=== PATIENT | male | born 1985 | race Caucasian/White ===

== ENCOUNTER 2016-10-16 15:33 | Outpatient (CLI) | payer OTHER | END 2016-10-16 15:34 | disposition home or self-care (01) | DX: M94.262 Chondromalacia, left knee (principal); S83.232A Complex tear of medial meniscus, current injury, left knee, initial encounter ==

== ENCOUNTER 2017-02-07 09:19 | Day surgery (SDC) | payer OTHER ==
[~2017-02-07 09:19] MED LIST: ACETAMINOPHEN 1,000 MG/100 ML 100 ML IV ONE; CELECOXIB 100 MG CAPSULE PO ONE; VANCOMYCIN INJ 1 GM in SODIUM CHLORIDE 0.9% 250 ML IV ONE
[2017-02-07] MEDS ORDERED: LIDOCAINE-MPF 2% 5 ML VIAL IM ONE (09:30)
[2017-02-07] MEDS ORDERED: ONDANSETRON 4 MG/2 ML VIAL IVP ONE (09:30)
[2017-02-07] MEDS ORDERED: PROPOFOL 200 MG/20 ML VIAL IVP ONE (09:30)
[2017-02-07] MEDS ORDERED: MIDAZOLAM 2 MG/2 ML VIAL IVP ONE (09:30)
[2017-02-07] MEDS ORDERED: DEXAMETHASONE 4 MG/ML VIAL IVP ONE (09:30)
[2017-02-07] MEDS ORDERED: fentaNYL 100 MCG/2 ML VIAL IVP ONE (09:30)
[2017-02-07] MEDS ORDERED: LACTATED RINGERS 1,000 ML IV ONE ×2 (09:39→11:25)
[2017-02-07] MEDS ORDERED: MORPHINE PF 5 MG/10 ML AMP EPI ONE ×2 (10:43→11:25)
[2017-02-07] MEDS ORDERED: ROPIVACAINE 0.2% PF 20 ML AMPULE SUBQ ONE ×2 (10:44→11:26)
[2017-02-07] MEDS ORDERED: BUPIVACAINE 0.5% PF 10 ML VIAL IM ONE ×2 (10:44→11:25)
[2017-02-07] MEDS ORDERED: oxyCOD/ACETAMIN 5 MG/325 MG TABLET PO ONE (12:47)
[2017-02-07 13:46] VITALS: BP 127/74
--- NOTE | 2017-02-11 07:59 | OPERATIVE REPORT ---
DATE OF SURGERY: 02/07/2017 00:00:00 ID#: [id number] PREOPERATIVE DIAGNOSIS: Left knee medial meniscus tear, left knee medial femoral condyle chondromalacia. OPERATIVE DIAGNOSIS: Left knee bucket-handle medial meniscus tear and grade 1 medial femoral condyle chondromalacia. OPERATION PERFORMED: Left knee arthroscopy with near-total medial meniscectomy. OPERATIVE SURGEON: Commander Klaus Wang, [facility] USN MANAGER PRINT SURGEON: Lieutenant Commander Tg Gray MD, [facility], [facility] ANESTHESIA PROVIDER: Mragarito Simons CRNA ANESTHESIA TECHNIQUE: General anesthesia via LMA with local at the incision site. CIRCULATING RN: Mr. Zach Richard RN SCRUB TECHS: Terri Elizalde RN, BSN; and Yessy Aguirre, RAFAEL START TIME: 1042 hours. END TIME: 1115 hours. INJECTED SUBSTANCES INCLUDE: Duramorph morphine 10 mg and ropivacaine 0.2% 5 mL injected intraarticularly after closure of portal sites for postoperative pain control. Marcaine plain 0.25% 9 mL at the portal sites prior to incision; INTRAVENOUS FLUIDS: Lactated Ringer 900 mL. PREOPERATIVE ANTIBIOTICS: Vancomycin 1 gram due to a prior MRSA infection with negative nasal swabs x2. ESTIMATED BLOOD LOSS: 5 mL. PREOPERATIVE PREP: Hibiclens followed by ChloraPrep applied to the exposed operative skin after draping. Patient had FREEMAN hose and SCDs on the right lower extremity and functioning prior to induction of anesthesia. TOURNIQUET TIME: None. COMPLICATIONS: None. 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 Patient was counseled as far as the findings and options for operative versus nonoperative management , including the risks, benefits, alternatives, and expectations to both operative and nonoperative management. He preferred to have surgery, received command authorization for surgery, had negative nasal MRSA swabs x2. On the day of surgery, he identified the operative site to be his left knee; it was initialed by the operative surgeon. He had removal of hair with clippers. He was then taken back to the operating room, placed in the supine position, and underwent general anesthesia via LMA. After adequate anesthetic control, and initiation of antibiotics, the patient's bony prominences were well padded. He had a tourniquet applied to the left upper thigh. The knee underwent examination under anesthesia, which revealed full passive range of motion, stable anterior and posterior drawer, stable Jack's, negative pivot shift or glide, stable varus and valgus stress at 0 and 30 degrees. The patient's left lower extremity then underwent Hibiclens prep and standard sterile draping, followed by a surgical pause to confirm the proper patient, procedure, operative site, position, prophylactic antibiotics, surgical initials, and surgical instrumentation in accordance with the [place] Protocol Procedure Verification. Following this, additional ChloraPrep was applied to the exposed operative skin and allowed to dry for 3 minutes. His bony landmarks were then outlined with a skin marker, and surgery began with a stab incision to the anterolateral knee, insertion of the arthroscope into the suprapatellar pouch, where diagnostic arthroscopy began, revealing a normal-appearing medial, central, and lateral patellar chondral facets, normal- appearing chondral surface of the trochlea and patellofemoral tracking. The medial gutter was entered. There were no signs of synovitis or loose bodies. The medial compartment was entered under a valgus stress, revealing a bucket- handle medial meniscus tear with the majority of the tissue in the notch, and only a thin remnant of rim of meniscal tissue at the capsule. The knee was taken through a full range of motion; there were no other signs of chondromalacia. The meniscus tear was then reduced. The femoral notch required some removal of ligamentum in order to better evaluate the ACL, which appeared normal. The lateral compartment was then entered under figure-4 position, probing the lateral meniscus showed no sign of tear or instability. There was a small fissure to the lateral femoral condyle. Otherwise normal findings in the lateral compartment. The knee was taken through a full range of motion; there were no other signs of chondromalacia. Attention was then focused back to the medial compartment, where a near total medial meniscectomy was performed due to the complex nature and pattern of the tear and inability to completely reduce the tear, along with multiple tear planes that prohibited what I felt would be a unstable repair with chance of healing. The meniscectomy was performed using the sucker shaver and Max set meniscus biters back to a stable rim. The instruments were then removed from the patient's knee, and the fluid was allowed to extravasate out. The wounds were then closed with 3-0 Monocryl, followed by Mastisol, Steri-Strips, Xeroform, sterile plain gauze, sterile Webril, and MESERET bandage to mid thigh. The patient was then extubated in the operating room and taken to the recovery room in stable condition and tolerated the procedure well. The patient's was notified by telephone of the intraoperative findings, procedure performed, and postoperative instructions. Due to the near-total medial meniscectomy, and the fact that the patient has good cartilage along with good alignment on his mechanical axis x-ray performed preoperatively, and stable ligamentous exam, this patient may be a future candidate for meniscus transplantation, which I will discuss with him postoperatively. Edited and electronically signed: CDR Klaus Wang MC, USN [id number] JOB #: [id number] EXT JOB #:[id number] CARLINE
== END 2017-02-07 09:20 | disposition home or self-care (01) ==
LOC: SDS 09:19
PROVIDERS: ATTEND Orthopaedic Surgery
PROC: 0SBD4ZZ Excision of Left Knee Joint, Percutaneous Endoscopic Approach (ICD-10-PCS; principal; 2017-02-07 11:00)
DX: S83.212A Bucket-handle tear of medial meniscus, current injury, left knee, initial encounter (principal); M94.262 Chondromalacia, left knee; Z87.891 Personal history of nicotine dependence
CPT/HCPCS: 29881; A9270; J0131; J3370; J7120

== ENCOUNTER 2017-04-14 06:37 | Emergency (ER) | payer OTHER ==
[2017-04-14] MEDS ORDERED: ONDANSETRON ODT 4 MG TABLET TL STA (06:50)
[2017-04-14 06:52] VITALS: BP 125/84
[2017-04-14] MEDS ORDERED: ONDANSETRON ODT 4 MG TABLET ONE (06:55)
--- NOTE | 2017-04-14 06:59 | ED Physician Documentation ---
PD HPI NVD - Stated complaint Stated Complaint: VOMITING - Chief complaint Chief Complaint: Abd Pain - History obtained from History obtained from: Patient - History of Present Illness Timing - onset: How many hours ago (5) Timing - duration: Hours (5) Timing - details: Abrupt onset Pain level max: 3 Pain level now: 3 Associated symptoms: Abdominal pain (cramping). No: Hematemesis, Melena, Hematochezia Contributing factors: Sick contact (children at home with same) Improved by: Vomiting, BM (diarrhea) Worsened by: Eating Similar symptoms before: Has not had sx before Recently seen: Not recently seen Review of Systems Ten Systems: 10 systems reviewed and negative Constitutional: denies: Fever, Chills Ears: denies: Ear pain Nose: denies: Rhinorrhea / runny nose, Congestion Throat: denies: Sore throat Cardiac: denies: Chest pain / pressure Respiratory: denies: Cough GI: reports: Nausea, Vomiting (several times last night), Diarrhea (once) Skin: denies: Rash Musculoskeletal: denies: Neck pain, Back pain Neurologic: denies: Headache PD PAST MEDICAL HISTORY - Past Medical History Cardiovascular: None Respiratory: None Endocrine/Autoimmune: None GI: None : None HEENT: None Psych: None Musculoskeletal: Other Derm: None - Past Surgical History Past Surgical History: No - Present Medications Home Medications: Ambulatory Orders Medication Instructions Recorded Confirmed Ibuprofen [Motrin] 800 mg PO Q8H PRN #30 tablet 07/21/16 02/07/17 Multivitamin [Multiple Vitamins] 1 each PO 02/04/17 Ondansetron Odt [Zofran] 4 mg TL Q6H PRN #10 tablet 04/14/17 - Allergies Allergies/Adverse Reactions: Allergies Allergy/AdvReac Type Severity Reaction Status Date / Time antihistamines eye drops Allergy Unknown Uncoded 02/04/17 10:46 - Social History Does the pt smoke?: No Smoking Status: Never smoker Does the pt drink ETOH?: Yes Does the pt have substance abuse?: No - Immunizations Immunizations are current?: Yes - POLST Patient has POLST: No PD ED PE NORMAL - Vitals Vital signs reviewed: Yes - General General: Alert and oriented X 3, No acute distress - HEENT HEENT: PERRL, Moist mucous membranes - Neck Neck: Supple, no meningeal sign - Cardiac Cardiac: RRR, Strong equal pulses - Respiratory Respiratory: No respiratory distress - Abdomen Abdomen: Soft, Non tender, Non distended - Derm Derm: Warm and dry - Neuro Neuro: Alert and oriented X 3 - Psych Psych: Normal mood, Normal affect Results - Vitals Vitals: Vital Signs - 24 hr 04/14/17 06:44 Temperature 37.1 C Heart Rate 102 H Respiratory 20 Rate Blood Pressure 125/84 H O2 Saturation 96 Oxygen O2 Source Room air PD MEDICAL DECISION MAKING - ED course Complexity details: re-evaluated patient, considered differential, d/w patient ED course: Patient is a 32-year-old male who presents to the emergency department with vomiting last night and diarrhea 1 today. Was supposed to go to work at the [employer] this morning, but was sent here for a work note. He is well- appearing, nontoxic. Afebrile. Given Zofran and is tolerating p.o. well. Will continue supportive care and follow-up with his doctor. Family is all sick with the same symptoms. Likely viral gastroenteritis. Patient counseled regarding signs and symptoms for which I believe and urgent re-evaluation would be necessary. Patient with good understanding of and agreement to plan and is comfortable going home at this time This document was made in part using voice recognition software. While efforts are made to proofread this document, sound alike and grammatical errors may occur. Departure - Departure Disposition: 01 Home, Self Care Clinical Impression: Gastroenteritis Condition: Good Instructions: ED Gastroenteritis Viral Follow-Up: Jasper Seals MD [Primary Care Provider] - Within 3 Days Prescriptions: Ondansetron Odt [Zofran] 4 mg TL Q6H PRN #10 tablet PRN Reason: Nausea / Vomiting Comments: Drink plenty of fluids and rest. Return if you worsen. Forms: Activity restrictions
== END 2017-04-14 07:48 | disposition home or self-care (01) ==
LOC: ED 06:37
DX: K52.9 Noninfective gastroenteritis and colitis, unspecified (principal)
CPT/HCPCS: 99283; Q0162

== ENCOUNTER 2018-02-28 05:25 | Emergency (ER) | payer OTHER ==
[2018-02-28] MEDS ORDERED: KETOROLAC 60 MG/2 ML VIAL IVP STA (05:51)
--- NOTE | 2018-02-28 06:08 | ED Physician Documentation ---
History of Present Illness - Stated complaint Stated Complaint: MALE - Chief complaint Chief Complaint: General - History obtained from History obtained from: Patient - Additonal information Additional information: 33-year-old male presents the emergency department with 2 complaints. The patient reports having diarrhea for the past several weeks which he attributes to a poor diet and stress. The patient denies blood in the stools, focal abdominal pain, vomiting, recent antibiotic usage Or continuous pain. The patient has had no change in his appetite and has been able to eat and drink. The patient reports 2 days of the left testicle pain which is worse with movement. The patient denies any hematuria, dysuria or penile discharge. The patient denies testicle swelling. The patient denies new sexual partners. The patient reports pain with movement. Symptoms are described as moderate. No other associated symptoms. No specific triggering factors. Review of Systems Constitutional: denies: Fever, Chills Eyes: denies: Loss of vision Ears: denies: Ear pain Nose: denies: Congestion Throat: denies: Dental pain / toothache Cardiac: denies: Chest pain / pressure Respiratory: denies: Dyspnea GI: reports: Diarrhea : reports: Testicular pain. denies: Dysuria, Unable to Void, Hematuria, Discharge Skin: denies: Rash Musculoskeletal: denies: Neck pain Neurologic: denies: Generalized weakness Immunocompromised: denies: Chemotherapy PD PAST MEDICAL HISTORY - Past Medical History Past Medical History: No Cardiovascular: None Respiratory: None Endocrine/Autoimmune: None GI: None : None HEENT: None Psych: None Musculoskeletal: Other Derm: None - Past Surgical History Past Surgical History: No - Present Medications Home Medications: Ambulatory Orders Medication Instructions Recorded Confirmed Loperamide HCl [Imodium A-D] 2 mg PO BID PRN #10 capsule 02/28/18 - Allergies Allergies/Adverse Reactions: Allergies Allergy/AdvReac Type Severity Reaction Status Date / Time antihistamines eye drops Allergy Unknown Uncoded 02/28/18 05:40 - Social History Does the pt smoke?: No Smoking Status: Never smoker Does the pt drink ETOH?: Yes Does the pt have substance abuse?: No - Immunizations Immunizations are current?: Yes - POLST Patient has POLST: No PD ED PE NORMAL - General General: Alert and oriented X 3, No acute distress - HEENT HEENT: Atraumatic, PERRL, EOMI, Ears normal, Moist mucous membranes - Cardiac Cardiac: RRR, Strong equal pulses - Respiratory Respiratory: No respiratory distress, Clear bilaterally - Abdomen Abdomen: Normal bowel sounds, Non tender, Non distended - Derm Derm: Normal color - Extremities Extremities: No deformity, Normal ROM s pain - Neuro Neuro: Alert and oriented X 3, Normal speech - Psych Psych: Normal mood PD ED PE EXPANDED - Male Male : Circumcised, Testes descended carey, Normal lie/cremastaric, Tenderness, Radiation Physicist present. No: Skin lesions, Discharge Results - Vitals Vitals: Vital Signs - 24 hr 02/28/18 02/28/18 05:37 07:36 Temperature 36.0 C L 36.1 C L Heart Rate 74 72 Respiratory 16 18 Rate Blood Pressure 142/84 H 138/80 H O2 Saturation 97 98 Oxygen O2 Source Room air - Labs Labs: Microbiology 02/28/18 06:04 Clostridium difficile (PCR) - Final Stool 02/28/18 06:04 Campylobacter Antigen Assay - Final Stool Laboratory Tests 02/28/18 02/28/18 02/28/18 06:00 06:18 06:18 WBC 6.2 RBC 4.78 Hgb 15.0 Hct 42.9 MCV 89.7 MCH 31.3 H MCHC 34.9 RDW 13.2 Plt Count 292 MPV 6.7 L Neut # (Auto) 3.1 Lymph # (Auto) 2.2 [place] # (Auto) 0.6 Eos # (Auto) 0.3 Baso # (Auto) 0.1 Absolute Nucleated RBC 0.01 Nucleated RBC % 0.1 Sodium 136 Potassium 4.1 Chloride 107 Carbon Dioxide 25 Anion Gap 4.0 L BUN 17 Creatinine 0.9 Estimated GFR (MDRD) 98 Glucose 110 H Calcium 8.8 Total Bilirubin 1.0 AST 30 ALT 38 Alkaline Phosphatase 51 Total Protein 7.4 Albumin 4.6 Globulin 2.8 Albumin/Globulin Ratio 1.6 Lipase 38 Urine Color YELLOW Urine Clarity CLEAR Urine pH 6.0 Ur Specific [place] 1.020 Urine Protein NEGATIVE Urine Glucose (UA) NEGATIVE Urine Ketones NEGATIVE Urine Occult Blood NEGATIVE Urine Nitrite NEGATIVE Urine Bilirubin NEGATIVE Urine Urobilinogen 0.2 (NORMAL) Ur Leukocyte Esterase NEGATIVE Ur Microscopic Review NOT INDICATED Urine Culture Comments NOT INDICATED PD MEDICAL DECISION MAKING - ED course ED course: 07:00 AM The patient's care was turned over to Dr. Pickard to follow up on the lab results, US, Reevaluation and final disposition - Sepsis Event Vital Signs: Vital Signs - 24 hr 02/28/18 02/28/18 05:37 07:36 Temperature 36.0 C L 36.1 C L Heart Rate 74 72 Respiratory 16 18 Rate Blood Pressure 142/84 H 138/80 H O2 Saturation 97 98 Oxygen O2 Source Room air Departure - Departure Disposition: 01 Home, Self Care Clinical Impression: Testicle pain Diarrhea Qualifiers: Diarrhea type: unspecified type Qualified Code(s): R19.7 - Diarrhea, unspecified Condition: Stable Instructions: ED Diarrhea Viral, ED Testicular Pain [facility] Prescriptions: Loperamide HCl [Imodium A-D] 2 mg PO BID PRN #10 capsule PRN Reason: Diarrhea Comments: Drink plenty of fluids. You can use Tylenol or ibuprofen if needed for discomfort. Take Imodium as prescribed if needed for diarrhea. Follow up with your primary physician. Call to schedule appointment. Return to the emergency department if you develop increasing abdominal pain, increasing testicular pain, dehydration, or otherwise worsening symptoms. Forms: Activity restrictions Discharge Date/Time: 02/28/18 07:36
[2018-02-28 06:24] LABS: BASOPHILS # (AUTO) 0.1 10^3/uL (0.0-0.1); EOSINOPHILS # (AUTO) 0.3 10^3/uL (0.0-0.7); EOSINOPHILS % (AUTO) 4.2 %; LYMPHOCYTES # (AUTO) 2.2 10^3/uL (1.5-3.5); LYMPHOCYTES % (AUTO) 35.6 %; MEAN CORPUSCULAR HEMOGLOBIN 31.3 pg (27.0-31.0); MEAN CORPUSCULAR HGB CONC 34.9 g/dL (32.0-36.0); MEAN CORPUSCULAR VOLUME 89.7 fL (80.0-94.0); MEAN PLATELET VOLUME 6.7 fL (7.4-11.4); MONOCYTES # (AUTO) 0.6 10^3/uL (0.0-1.0); MONOCYTES % (AUTO) 8.9 %; NEUTROPHILS # (AUTO) 3.1 10^3/uL (1.5-6.6); NEUTROPHILS % (AUTO) 50.3 %; PLT - PLATELET COUNT 292 10^3/uL (130-450); RED BLOOD COUNT 4.78 10^6/uL (4.70-6.10); RED CELL DISTRIBUTION WIDTH 13.2 % (12.0-15.0); WHITE BLOOD COUNT 6.2 x10^3/uL (4.8-10.8)
[2018-02-28 06:35] LABS: ALBUMIN 4.6 g/dL (3.2-5.5); ALBUMIN/GLOBULIN RATIO 1.6 (1.0-2.2); CALCIUM 8.8 mg/dL (8.5-10.3); CREATININE 0.9 mg/dL (0.6-1.2); TOTAL PROTEIN 7.4 g/dL (6.7-8.2)
[2018-02-28 06:56] LABS: BILIRUBIN,URINE NEGATIVE (NEGATIVE); GLUCOSE, URINE (UA) NEGATIVE (NEGATIVE); KETONES,URINE (UA) NEGATIVE (NEGATIVE); LEUKOCYTE ESTERASE, URINE NEGATIVE (NEGATIVE); NITRITE,URINE NEGATIVE (NEGATIVE); OCCULT BLOOD,URINE NEGATIVE (NEGATIVE); PROTEIN,URINE NEGATIVE (NEGATIVE); UROBILINOGEN,URINE 0.2 (NORMAL) E.U./dL (NORMAL)
[2018-02-28 07:01] LABS: CLARITY,URINE CLEAR (CLEAR)
--- NOTE | 2018-02-28 07:12 | Ultrasound Report ---
Procedure Date: 02/28/2018 Accession Number: [id number] / [id number] Procedure: US - Testicle w/Doppler CPT Code: FULL RESULT: EXAM: SCROTAL ULTRASOUND EXAM DATE: 02/28/2018 06:26 AM. CLINICAL HISTORY: Left testicle pain. COMPARISON: None. TECHNIQUE: Real-time scanning was performed with static images obtained. Both color-flow and Doppler spectral analysis were utilized. FINDINGS: Right: Testis: 4.8 x 2.3 x 3.0 cm. Normal size and echotexture. No mass, calcification, or abnormal blood flow. Epididymis: 0.9 x 1.3 x 1.2 cm. Normal size and echotexture. No mass or abnormal blood flow. There is an epididymal body cyst measuring 1.4 x 0.5 x 0.7 cm. Hydrocele: None. Varicocele: None. Left: Testis: 4.8 x 2.3 x 2.8 cm. Normal size and echotexture. No mass, calcification, or abnormal blood flow. Epididymis: 1.6 x 0.9 x 1.2 cm. Normal size and echotexture. No mass or abnormal blood flow. There is an epididymal head cyst measuring 0.4 x 0.3 x 0.3 cm. Hydrocele: None. Varicocele: None. IMPRESSION: Normal scrotal ultrasound. RADIA
--- NOTE | 2018-02-28 07:29 | ED Physician Documentation ---
History of Present Illness - Stated complaint Stated Complaint: MALE - Chief complaint Chief Complaint: General PD PAST MEDICAL HISTORY - Past Medical History Past Medical History: No Cardiovascular: None Respiratory: None Endocrine/Autoimmune: None GI: None : None HEENT: None Psych: None Musculoskeletal: Other Derm: None - Past Surgical History Past Surgical History: No - Present Medications Home Medications: Ambulatory Orders Medication Instructions Recorded Confirmed Loperamide HCl [Imodium A-D] 2 mg PO BID PRN #10 capsule 02/28/18 - Allergies Allergies/Adverse Reactions: Allergies Allergy/AdvReac Type Severity Reaction Status Date / Time antihistamines eye drops Allergy Unknown Uncoded 02/28/18 05:40 - Social History Does the pt smoke?: No Smoking Status: Never smoker Does the pt drink ETOH?: Yes Does the pt have substance abuse?: No - Immunizations Immunizations are current?: Yes - POLST Patient has POLST: No Results - Vitals Vitals: Vital Signs - 24 hr 02/28/18 02/28/18 05:37 07:36 Temperature 36.0 C L 36.1 C L Heart Rate 74 72 Respiratory 16 18 Rate Blood Pressure 142/84 H 138/80 H O2 Saturation 97 98 Oxygen O2 Source Room air - Labs Labs: Microbiology 02/28/18 06:04 Campylobacter Antigen Assay - Final Stool Laboratory Tests 02/28/18 02/28/18 02/28/18 06:00 06:18 06:18 WBC 6.2 RBC 4.78 Hgb 15.0 Hct 42.9 MCV 89.7 MCH 31.3 H MCHC 34.9 RDW 13.2 Plt Count 292 MPV 6.7 L Neut # (Auto) 3.1 Lymph # (Auto) 2.2 [place] # (Auto) 0.6 Eos # (Auto) 0.3 Baso # (Auto) 0.1 Absolute Nucleated RBC 0.01 Nucleated RBC % 0.1 Sodium 136 Potassium 4.1 Chloride 107 Carbon Dioxide 25 Anion Gap 4.0 L BUN 17 Creatinine 0.9 Estimated GFR (MDRD) 98 Glucose 110 H Calcium 8.8 Total Bilirubin 1.0 AST 30 ALT 38 Alkaline Phosphatase 51 Total Protein 7.4 Albumin 4.6 Globulin 2.8 Albumin/Globulin Ratio 1.6 Lipase 38 Urine Color YELLOW Urine Clarity CLEAR Urine pH 6.0 Ur Specific [place] 1.020 Urine Protein NEGATIVE Urine Glucose (UA) NEGATIVE Urine Ketones NEGATIVE Urine Occult Blood NEGATIVE Urine Nitrite NEGATIVE Urine Bilirubin NEGATIVE Urine Urobilinogen 0.2 (NORMAL) Ur Leukocyte Esterase NEGATIVE Ur Microscopic Review NOT INDICATED Urine Culture Comments NOT INDICATED - Rads (name of study) Testicular U/S Radiology: Prelim report reviewed, EMP read contemporaneously, See rad report ( Normal right testicular ultrasound.) PD MEDICAL DECISION MAKING - ED course Complexity details: reviewed results, re-evaluated patient, considered differential, d/w patient ED course: At change of shift the patient's care was turned over to me pending results of testicular ultrasound. The ultrasound reveals normal right testicle, with no anatomic abnormality identified. Review of the patient's laboratory studies revealed normal CBC, chemistry panel and urinalysis. I reevaluated the patient upon his return from ultrasound, and found his abdomen nontender. He had one further episode of loose stool. The underlying cause of his diarrhea is not clear, but he does not appear to have any invasive bacterial source of diarrhea. I suspect the discomfort in his left groin is most likely related to recent strenuous activity he has undertaken, with associated muscular strain. There is no evidence of testicular torsion or hydrocele. He is being discharged with prescription for Imodium. I discussed with him the expected course of illness, symptomatic treatment and outpatient follow-up, as well as potentially worrisome signs or symptoms that should prompt reevaluation in the emergency department. - Sepsis Event Vital Signs: Vital Signs - 24 hr 02/28/18 02/28/18 05:37 07:36 Temperature 36.0 C L 36.1 C L Heart Rate 74 72 Respiratory 16 18 Rate Blood Pressure 142/84 H 138/80 H O2 Saturation 97 98 Oxygen O2 Source Room air Departure - Departure Disposition: 01 Home, Self Care Clinical Impression: Testicle pain Diarrhea Qualifiers: Diarrhea type: unspecified type Qualified Code(s): R19.7 - Diarrhea, unspecified Condition: Stable Instructions: ED Diarrhea Viral, ED Testicular Pain O Follow-Up: [facility] Crisostomo [Provider Group] Prescriptions: Loperamide HCl [Imodium A-D] 2 mg PO BID PRN #10 capsule PRN Reason: Diarrhea Comments: Drink plenty of fluids. You can use Tylenol or ibuprofen if needed for discomfort. Take Imodium as prescribed if needed for diarrhea. Follow up with your primary physician. Call to schedule appointment. Return to the emergency department if you develop increasing abdominal pain, increasing testicular pain, dehydration, or otherwise worsening symptoms. Forms: Activity restrictions Discharge Date/Time: 02/28/18 07:36
[2018-02-28 07:37] VITALS: BP 138/80
== END 2018-02-28 07:36 | disposition home or self-care (01) ==
LOC: ED 05:25
DX: N50.812 Left testicular pain (principal); R19.7 Diarrhea, unspecified
CPT/HCPCS: 36415; 76870; 80053; 81001; 81003; 83690; 85025; 87045; 87046; 87086; 87491; 87493; 87591; 93975; 96374; 99283; 99284

== ENCOUNTER 2020-02-08 15:01 | Emergency (ER) | payer OTHER ==
--- NOTE | 2020-02-08 16:57 | ED Physician Documentation ---
PD HPI LOWER EXT INJURY - Stated complaint Stated Complaint: RT KNEE PX - Chief complaint Chief Complaint: Ext Problem - History obtained from History obtained from: Patient - History of Present Illness PD HPI LOW EXT INJURY LOCATION: Right, Knee Type of injury: Twist (he was just getting up from desk chair, turned to side to get up, pushing up with right leg and felt pop and pain in right knee. Unable to bear weight comfortably. Hurts to fully extend and flex.) Timing - onset: Today Timing - details: Abrupt onset, Still present Associated symptoms: No: Weakness, Numbness, Swelling Similar symptoms before: Has not had sx before (had problems with left knee with meniscal injury and some loose cartilage. Better with arthroscopy. No prior right knee problems.) Recently seen: Not recently seen Review of Systems Constitutional: denies: Fever, Chills Nose: denies: Rhinorrhea / runny nose, Congestion Throat: denies: Sore throat Respiratory: denies: Cough Skin: denies: Abrasion (s), Laceration (s) Neurologic: denies: Focal weakness, Numbness PD PAST MEDICAL HISTORY - Past Medical History Cardiovascular: None Respiratory: None Endocrine/Autoimmune: None GI: None : None HEENT: None Psych: None Musculoskeletal: Other Derm: None - Past Surgical History Past Surgical History: No - Present Medications Home Medications: Ambulatory Orders Medication Instructions Recorded Confirmed Loperamide HCl [Imodium A-D] 2 mg PO BID PRN #10 capsule 02/28/18 Hydrocodone/Acetaminophen [Lanexa 1 each PO Q6H PRN #12 tablet 02/08/20 5-325 Tablet] Ibuprofen [Motrin] 600 mg PO TID PRN #25 tab 02/08/20 - Allergies Allergies/Adverse Reactions: Allergies Allergy/AdvReac Type Severity Reaction Status Date / Time No Known Drug Allergies Allergy Verified 02/08/20 15:05 - Social History Does the pt smoke?: No Smoking Status: Never smoker Does the pt drink ETOH?: Yes Does the pt have substance abuse?: No - Immunizations Immunizations are current?: Yes - POLST Patient has POLST: No PD ED PE NORMAL - Vitals Vital signs reviewed: Yes - General General: Alert and oriented X 3, Well developed/nourished, Other (appears in pain to fully extend or flex knee. Still hurting when rested too.) - Derm Derm: Normal color, Warm and dry, No rash - Extremities Extremities: Other (right knee without effusion. Some tenderness medial joint line, shifts with flexion. No pain with collateral nor cruciate testing. Pain with full extension, but does get mostly there; does not seem locked but very guarded. ) - Neuro Neuro: No motor deficit, No sensory deficit Results - Vitals Vitals: Vital Signs - 24 hr 02/08/20 02/08/20 02/08/20 15:03 16:59 17:50 Temperature 37 C 36.9 C 36.8 C Heart Rate 78 87 71 Respiratory 16 16 14 Rate Blood Pressure 147/97 H 151/97 H 150/92 H O2 Saturation 98 99 99 Oxygen O2 Source Room air - Rads (name of study) right knee Radiology: Prelim report reviewed (normal), See rad report PD MEDICAL DECISION MAKING - ED course Complexity details: considered differential (seems likely abrupt meniscal tear. Has had some pains with use, so presume was worn as current mechanism not very forceful. Does not seem locked, but guarded for full ROM, so not likely loose body/flap.), d/w patient Departure - Departure Disposition: 01 Home, Self Care Clinical Impression: Right knee pain Qualifiers: Chronicity: acute Qualified Code(s): M25.561 - Pain in right knee Acute meniscal injury of knee Qualifiers: Encounter type: initial encounter Laterality: right Qualified Code(s): S83.8X1A - Sprain of other specified parts of right knee, initial encounter Condition: Stable Record reviewed to determine appropriate education?: Yes Instructions: ED Meniscal Injury Knee Poss Follow-Up: ADRIAN Crisostomo [Provider Group] Prescriptions: Ibuprofen [Motrin] 600 mg PO TID PRN #25 tab PRN Reason: Pain Hydrocodone/Acetaminophen [Lanexa 5-325 Tablet] 1 each PO Q6H PRN #12 tablet PRN Reason: Pain Comments: Knee brace to support the knee and crutches for nonweightbearing to partial weightbearing as needed for comfort. Anti-inflammatory such as ibuprofen 3 times a day. To that add Tylenol or hydrocodone if needed for pain. Your x-ray appears normal so no obvious calcified loose body per se. It sounds likely that you have a small tear of the meniscus. We will treat this with a knee brace and crutches initially and have you follow-up with your primary care and subsequently orthopedics to see further evaluation. These are typically treated conservatively initially and see if they improve. Forms: Activity restrictions Discharge Date/Time: 02/08/20 18:12
[2020-02-08] MEDS ORDERED: IBUPROFEN 600 MG TABLET PO STA (17:22)
[2020-02-08] MEDS ORDERED: HYDROcod/ACETAM 5/325 MG TABLET PO STA (17:43)
--- NOTE | 2020-02-08 17:45 | XRAY Report ---
PROCEDURE: Knee 3 View RT INDICATIONS: knee pain abrupt today TECHNIQUE: 3 views of the right knee(s) were acquired. COMPARISON: None. FINDINGS: Bones: No fractures or dislocations. No suspicious bony lesions. Soft tissues: Moderate suprapatellar joint effusion is seen.. No suspicious soft tissue calcificatio ns. IMPRESSION: No right knee fracture or dislocation. Moderate joint effusion. No patellar subluxation. Reviewed by: Kelby Perez MD on 02/08/2020 5:43 PM PDT Approved by: Kelby Perez MD on 02/08/2020 5:43 PM PDT Station ID: [id number]
[2020-02-08 17:52] VITALS: BP 150/92
== END 2020-02-08 18:12 | disposition home or self-care (01) ==
LOC: ED 15:01
DX: S83.206A Unspecified tear of unspecified meniscus, current injury, right knee, initial encounter (principal); X50.1XXA Overexertion from prolonged static or awkward postures, initial encounter; Y93.89 Activity, other specified
CPT/HCPCS: 73562; 99283; A9270

== ENCOUNTER 2020-02-12 14:51 | Outpatient (CLI) | payer OTHER ==
--- NOTE | 2020-02-12 16:43 | MRI Report ---
PROCEDURE: Knee RT W/O INDICATIONS: INJURY OF LOWER LEG TECHNIQUE: Noncontrast sagittal PD fast spin echo and T2 fast spin echo with fat saturation, sagittal 3-D gradie nt sequence with fat saturation; coronal T1 spin echo and PD fast spin echo with fat saturation, and axial PD fast spin echo with fat saturation through the knee. COMPARISON: Right knee radiographs dated 02/08/2020 FINDINGS: Image quality: Excellent. Menisci: There is complex tearing of the medial meniscus with a vertical longitudinal component incl uding a displaced bucket-handle flap within the intercondylar notch. A horizontal oblique tear is see n within the residual nondisplaced meniscal remnant. The lateral meniscus is intact. Cruciate ligaments: The anterior and posterior cruciate ligaments appear intact. Medial structures: The medial collateral ligament appears intact. Visualized portions of the pes an serinus tendons appear normal. No abnormal bursal fluid. Lateral structures: The lateral collateral ligament, long and short heads of the biceps femoris tend on appear intact. The popliteus tendon appears intact. Iliotibial band appears normal. Anterior structures: The quadriceps and patellar tendons appear intact. Patellar alignment is joleen l. No femoral trochlear dysplasia or ventral trochlear prominence. No edema in the infrapatellar fa t pad. Bones and cartilage: No bone marrow contusions or fractures. 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 The cartilage of the medial and lateral femoroti bial compartments, as well as the patellofemoral compartment, appears normal in thickness. Joint space: There is a large joint effusion. IMPRESSION: 1. Complex tear of the medial meniscus with horizontal oblique and vertical longitudinal components. A flipped bucket-handle meniscal fragment is seen in the intercondylar notch. 2. Intact cruciate and collateral ligaments. No acute trabecular bone injury is seen. 3. Large joint effusion. Reviewed by: Sherif Moses MD on 02/12/2020 4:42 PM PDT Approved by: Sherif Moses MD on 02/12/2020 4:42 PM PDT Station ID: [id number]
== END 2020-02-12 14:52 | disposition home or self-care (01) ==
LOC: DI 14:51
DX: S83.241A Other tear of medial meniscus, current injury, right knee, initial encounter (principal); M25.461 Effusion, right knee

== ENCOUNTER 2020-03-18 08:54 | Day surgery (SDC) | payer OTHER ==
[~2020-03-18 08:54] MED LIST changes: -ACETAMINOPHEN 1,000 MG/100 ML 100 ML IV ONE; +CEFAZOLIN SODIUM IN 0.9 % NACL 2 GM/100 ML BAG IV ONE; -CELECOXIB 100 MG CAPSULE PO ONE; -VANCOMYCIN INJ 1 GM in SODIUM CHLORIDE 0.9% 250 ML IV ONE
[2020-03-18] MEDS ORDERED: LACTATED RINGERS 1,000 ML IV ONE ×3 (09:17→12:15)
[2020-03-18] MEDS ORDERED: PROPOFOL 200 MG/20 ML VIAL IVP ONE (10:30)
[2020-03-18] MEDS ORDERED: LIDOCAINE-MPF 2% 5 ML VIAL IM ONE (10:30)
[2020-03-18] MEDS ORDERED: DEXAMETHASONE 4 MG/ML VIAL IVP ONE (10:30)
[2020-03-18] MEDS ORDERED: fentaNYL 100 MCG/2 ML VIAL IVP ONE (10:30)
[2020-03-18] MEDS ORDERED: ONDANSETRON 4 MG/2 ML VIAL IVP ONE (10:30)
[2020-03-18] MEDS ORDERED: BUPIVACAINE 0.25% PF 30 ML VIAL ONE (10:37)
[2020-03-18] MEDS ORDERED: EPINEPHrine 1 MG/ML AMP ONE (10:37)
[2020-03-18] MEDS ORDERED: METOCLOPRAMIDE 10 MG/2 ML VIAL IVP PRN (10:39)
[2020-03-18] MEDS ORDERED: fentaNYL 100 MCG/2 ML VIAL IVP PRN (10:39)
[2020-03-18] MEDS ORDERED: ATROPINE ABBOJECT 1 MG/10 ML SYRINGE IVP PRN (10:39)
[2020-03-18] MEDS ORDERED: HYDROmorphone 0.5 MG/0.5 ML SYRINGE IVP PRN (10:39)
[2020-03-18] MEDS ORDERED: ONDANSETRON 4 MG/2 ML VIAL IVP PRN ×2 (10:39→11:58)
[2020-03-18] MEDS ORDERED: ePHEDrine 50 MG/ML VIAL IVP PRN (10:39)
[2020-03-18] MEDS ORDERED: NALOXONE 0.4 MG/ML VIAL IVP PRN (10:39)
--- NOTE | 2020-03-18 10:39 | ANESTHESIA ---
Pre-Anesthesia VS, & Labs - Diagnosis RIght knee pain - Procedure right knee arthroscope Vital Signs: Temp Pulse Resp BP Pulse Ox 36.3 C L 77 16 137/96 H 97 03/18/20 09:10 03/18/20 09:10 03/18/20 09:10 03/18/20 09:10 03/18/20 09:10 Height 5 ft 11 in Weight (kg) 97.52 kg Body Mass Index 31.5 Home Medications and Allergies Home Medications: Ambulatory Orders Ibuprofen [Motrin] 800 mg PO Q8H PRN 03/14/20 Ibuprofen [Motrin] 800 mg PO Q8H PRN 03/14/20 Allergies/Adverse Reactions: Allergies Allergy/AdvReac Type Severity Reaction Status Date / Time No Known Drug Allergies Allergy Verified 02/08/20 15:05 Anes History & Medical History - Anesthetic History Anesthesia Complications: reports: No previous complications Family history of Anesthesia Complications: Denies Family history of Malignant Hyperthermia: Denies - Medical History Cardiovascular: reports: None Pulmonary: reports: None Gastrointestinal: reports: None Urinary: reports: None Neuro: reports: None Musculoskeletal: reports: Other Endocrine/Autoimmune: reports: None Skin: reports: None Smoking Status: Never smoker Psychosocial: reports: No issues indicated - Surgical History Orthopedic: Arthroscopic surgery, Other Exam General: Alert Dental: WNL Mouth Opening: Greater than 4 Fingerbreadths Neck Mobility: Normal Mallampati classification: I Thyromental Distance: greater than 6 cm Respiratory: Lungs clear, Normal breath sounds, No respiratory distress, No accessory muscle use Cardiovascular: Regular rate, Normal S1, Normal S2, No murmurs Mental/Cognitive Status: Alert/Oriented X3, Normal for patient Cognitive Status: Within normal limits Plan Anesthesia Type: General Consent for Procedure(s) Verified and Reviewed: Yes Code Status: Attempt Resuscitation ASA classification: 1-Healthy patient Is this case an emergency?: No
[2020-03-18] MEDS ORDERED: LACTATED RINGERS 1,000 ML IV SCH (11:00)
[2020-03-18] MEDS ORDERED: EPINEPHrine 1 MG/ML AMP IR ONE (11:14)
[2020-03-18] MEDS ORDERED: BUPIVACAINE 0.25% PF 30 ML VIAL SUBQ ONE ×2 (11:14)
[2020-03-18] MEDS ORDERED: oxyCODONE 5 MG TABLET PO PRN (11:58)
--- NOTE | 2020-03-18 12:07 | ANESTHESIA POST OP EVALUATION ---
Anesthesia Post Eval - Post Anesthesia Eval Vitals: Last Vital Signs Temp 36.1 C L 03/18/20 12:00 Pulse 83 03/18/20 12:00 Resp 16 03/18/20 12:00 BP 141/96 H 03/18/20 12:00 Pulse Ox 93 03/18/20 12:00 CV Function Including HR & BP: positive: Stable Pain Control: positive: Satisfactory Nausea & Vomiting: positive: Negative Mental Status: positive: Baseline Respiratory Status: Airway Patent Hydration Status: Satisfactory
--- NOTE | 2020-03-18 12:08 | OPERATIVE REPORT ---
Operative Report - Other Other Information/Narrative: Date of Surgery: 18 March 2020 Pre-Op Diagnosis: Right medial meniscus tear Procedure: Right arthroscopic medial meniscus debridement. Lateral femoral condyle chondroplasty Postop Diagnosis: Right medial meniscus tear, not repairable. Right lateral femoral condyle cartilage lesion Primary Surgeon: Jose Soares Secondary Surgeon: Cornelio Ovalle Complications: None Tourniquet Time: 41 minutes EBL: 5 cc Indication For Surgery: 35-year-old male sustained an injury to his right knee 6 weeks ago where his medial meniscus was torn with a low-energy mechanism. He had continued mechanical symptoms and some challenges with motion as well as continued pain. MRI showed a complex bucket-handle, displaced tear of the medial meniscus. He has a history of a similar injury on the contralateral side that was managed with an later allograft. The risks, benefits, and alternatives were discussed. Risks include pain, bleeding, infection, damage to nearby structures and cartilage, lack of symptom relief, need for further surgery, DVT, PE, stroke, and . Written consent was obtained. Examination Under Anesthesia: Moderate effusion present. ROM equal to the contralateral side. Stable dial at 30 & 90 degrees. Stable to varus and valgus stressing at 0 & 30 degrees. Stable Jack. Stable Pivot shift. No mechanical sensation Arthroscopic Findings: Loose bodies -none Synovium -injected Patella cartilage -normal Trochlear cartilage -normal in the center of the trochlea but the lateral supratrochlear region had a 10 mm x 7 mm, mottled, partial-thickness cartilage lesion Medial femoral condyle cartilage -normal Medial tibial plateau cartilage -normal Medial meniscus -large bucket-handle tear that was flipped into the notch with a horizontal component and the remaining rim that went back to the capsule. This was not repairable. All unstable portions were excised Anterior cruciate ligament -normal Posterior cruciate ligament -normal Lateral femoral condyle cartilage -7 mm x 7 mm full-thickness cartilage lesion that engaged at near full extension. An overlying flap was debrided Lateral tibial plateau cartilage -normal Lateral meniscus -normal Procedure in Detail: The patient was met in the pre-operative hold area on the day of the procedure. The operative extremity was signed and questions were answered. The patient was brought to the operating room and a general anesthetic was administered. Supine position was used and bony prominences were padded. An examination under anesthesia was performed. Standard prepping and draping was performed. A time out confirmed patient identification, laterality, procedure, allergies, antibiotics, and images. An Esmarch was used to exsanguinate the limb and the tourniquet was elevated to 250 mmHg. A standard diagnostic arthroscopy of the knee was performed through ante rolateral and anteromedial portal sites. The anteromedial portal was created under direct visualization after localizing with a spinal needle. The findings can be found above. I then proceeded to use a straight biter to amputate the flipped bucket-handle tear near the root. I then partially amputated it near the anterior connection and then pulled it out of the joint and 1 large piece. I then used the shaver to debride all stumps anteriorly and posteriorly. I then used the shaver around the edge of the horizontal tear and debrided the free edges of them back to a stable base. I then used a straight biter on the lateral femoral condyle cartilage lesion and removed unstable pieces of cartilage and follow that on with a shaver. After probing the cartilage lesion in the lateral trochlea I decided that it did not have anything that was unstable enough to excise and so I left it as it is. Final images were taken and all arthroscopic fluid and instruments were removed from the knee. The incisions were closed with buried monocryl sutures. Steri strips were applied. 20 cc of 0.25% Marcaine without epinephrine was injected near the portal sites. A sterile dressing and compression stocking was placed. The patient was awakened and transferred to recovery in stable condition.
[2020-03-18] MEDS ORDERED: oxyCODONE 5 MG TABLET ONE (12:50)
[2020-03-18 13:46] VITALS: BP 135/83
== END 2020-03-18 08:55 | disposition home or self-care (01) ==
LOC: SDS 08:54
PROVIDERS: ATTEND Orthopaedic Surgery
DX: S83.211A Bucket-handle tear of medial meniscus, current injury, right knee, initial encounter (principal)